=== PATIENT | female | born 1940 | race American Indian/Alaskan Native ===

== ENCOUNTER 2019-05-08 10:08 | Outpatient (CLI) | payer MEDICARE ==
--- NOTE | 2019-05-13 11:47 | Magnetic Resonance Report ---
BILATERAL BREAST MR WITHOUT AND WITH GADOLINIUM INDICATION: Left nipple discharge, left nipple retraction and increased risk for breast cancer based on family history. COMPARISONS: 03/05/2019 bilateral diagnostic mammogram and left breast ultrasound from [facility] TECHNIQUE: Axial 1.0 mm T1 without, axial high-resolution 2.0 mm T2 and axial 1.0 mm dynamic vibrant high-resolution postcontrast T1 fat saturation sequences on a 1.5 Samira magnet. The examination was p erformed with an 8-channel dedicated [place] breast coil. Post-processing with CAD and subtraction was performed on an [employer] workstation. 18.0 cc of MultiHance was injected without incident for the c ontrast portion of the exam. Consent was obtained prior to the administration of the contrast. FINDINGS: RIGHT BREAST: Marked background parenchymal enhancement. No mass or suspicious enhancement. No suspic ious right axillary or right internal mammary lymph nodes. LEFT BREAST: Moderate background parenchymal enhancement with overall decreased enhancement when comp ared to the right breast. Focal subareolar nonmass enhancement measures 14.1 x 8.0 x 4.2 mm. It demon strates heterogeneous enhancement with mixed kinetics, 103% peak enhancement, 47% type I persistent, 35% type II plateau an 18% type III washout waveforms. The left nipple is slightly retracted and T2 h yperintense signal is identified within the subareolar duct. No other mass or suspicious enhancement. A benign intraparenchymal lymph node at 6:00 7 cm from the nipple measures 8.2 x 6.3 x 4.0 mm. It ibarra s a large fatty hilum is hyperintense on T2 and correlates with ultrasound findings. No suspicious le ft axillary or left internal mammary lymph nodes. IMPRESSION: 1. Suspicious left subareolar focal nonmass enhancement. Recommend targeted ultrasound and ultrasound -guided needle biopsy if a lesion is identified by ultrasound. If no lesion is identified by ultrasou nd, consider left subareolar surgical excision. MRI biopsy may not be feasible due to the proximity o f the lesion to the nipple. 2. Negative right breast. 3. No suspicious lymph nodes. 4. A benign intraparenchymal lymph node of the left breast at 6:00 7 cm from the nipple. BI-RADS Category 4: Suspicious FINAL ASSESSMENT: Signer Name: Yuniel Urias MD Signed: 05/13/2019 11:42 AM Workstation Name: [id number]
== END 2019-05-08 10:09 | disposition home or self-care (01) ==
LOC: SPVIMAG 10:08
PROVIDERS: ATTEND Surgery
DX: R92.8 Other abnormal and inconclusive findings on diagnostic imaging of breast (principal); Z80.3 Family history of malignant neoplasm of breast
CPT/HCPCS: A9577; C8908; 77049

== ENCOUNTER 2019-06-11 10:22 | Outpatient (CLI) | payer MEDICARE ==
--- NOTE | 2019-06-11 11:55 | Ultrasound Report ---
LEFT BREAST ULTRASOUND HISTORY: Left nipple discharge and retraction. Recent abnormal MRI. COMPARISON: 05/13/2019 MRI. FINDINGS: Sonographic evaluation focused upon the area of clinical concern in the subareolar location demonstrates slight retraction of the nipple and several prominent dilated ducts. A prominent dilate d duct correlates with a duct on the MRI and the nonmass enhancement described on the MRI appears to be associated with this duct. No intraductal mass or suspicious shadowing.. IMPRESSION: Subareolar duct ectasia which is suspicious based on the MRI findings. These ducts are not amenable t o either ultrasound or MRI guided needle biopsy. Recommend surgical excision. BI-RADS Category 4: Suspicious Signer Name: Yuniel Urias MD Signed: 06/11/2019 11:51 AM Workstation Name: [id number]
== END 2019-06-11 10:23 | disposition home or self-care (01) ==
LOC: SPVWC 10:22
PROVIDERS: ATTEND Surgery
DX: N64.9 Disorder of breast, unspecified (principal)

== ENCOUNTER 2019-06-20 09:53 | Outpatient (CLI) | payer MEDICARE ==
--- NOTE | 2019-06-20 13:15 | Mammography Report ---
LEFT DIGITAL DIAGNOSTIC MAMMOGRAM CLINICAL: For clip placement after MRI guided needle biopsy. COMPARISON: 03/05/2019 FINDINGS: A retroareolar biopsy clip is identified and correlates with the site of MRI biopsy. IMPRESSION: Concordant clip deployment. BI-RADS Category 4: Suspicious Signer Name: Yuniel Urias MD Signed: 06/20/2019 1:10 PM Workstation Name: [id number]
--- NOTE | 2019-06-20 13:19 | Magnetic Resonance Report ---
LEFT MRI GUIDED BREAST BIOPSY INDICATION: Left nipple retraction and suspicious retroareolar nonmass enhancement. COMPARISONS: 03/05/2019 TECHNIQUE: Axial 1.0 mm T1 without and axial 1.0 mm dynamic vibrant high-resolution postcontrast T1 f at saturation sequences on a 1.5 Samira magnet. 18.0 cc of MultiHance was injected without incident fo r the contrast portion of the exam. Consent was obtained prior to the administration of the contrast. Lesion targeting was performed with [employer] software. FINDINGS: A timeout was called and the skin was marked. A localization scan was performed and a single lesion w as targeted. Using 1% lidocaine for superficial anesthesia and 2% lidocaine with epinephrine for deep anesthesia, a 9 gauge vacuum-assisted biopsy was performed. Satisfactory targeting and sampling was confirmed with imaging. Multiple cores were obtained and placed in formalin. The patient tolerated th e procedure well and there were no apparent complications. Hemostasis was achieved with minimal effor t. Steri-Strips and a sterile dressing were applied. A post procedure mammogram demonstrated concordant clip deployment. IMPRESSION: Successful uncomplicated MRI guided needle biopsy left breast. BI-RADS Category 4: Suspicious Signer Name: Yuniel Urias MD Signed: 06/20/2019 1:14 PM Workstation Name: [id number]
== END 2019-06-20 09:54 | disposition home or self-care (01) ==
LOC: SPVIMAG 09:53
PROVIDERS: ATTEND Surgery
DX: D24.2 Benign neoplasm of left breast (principal); R92.8 Other abnormal and inconclusive findings on diagnostic imaging of breast
CPT/HCPCS: 19085; 77065; 88305; A4648; A9577

== ENCOUNTER 2019-07-22 07:39 | Day surgery (SDC) | payer MEDICARE ==
[~2019-07-22 07:39] MED LIST: ceFAZolin/Water 2 GM/20 ML 2 GM/20 ML SYRINGE IV NR
[2019-07-22] MEDS ORDERED: BUPIVACAINE/PF (0.25%) 2.5 MG/ML 30 ML VIAL INFILTRATI ONE ×2 (07:53→12:14)
[2019-07-22] MEDS ORDERED: LIDOCAINE (1%) 10 MG/1 ML VIAL 20 ML MDV ONE ×2 (07:53→08:46)
[2019-07-22] MEDS ORDERED: LACTATED RINGERS 1,000 ML ONE ×2 (08:10→13:10)
[2019-07-22] MEDS ORDERED: LIDOCAINE (1%) 10 MG/1 ML VIAL 20 ML MDV INFILTRATI ONE ×2 (09:00→12:12)
[2019-07-22] MEDS ORDERED: LACTATED RINGERS 1,000 ML IV SCH (09:35)
[2019-07-22] MEDS ORDERED: ONDANSETRON 4 MG/2 ML INJ IV PRN (10:29)
--- NOTE | 2019-07-22 10:50 | Anesthesia Consultation ---
Anesthesia Consult and Med Hx - Airway Anesthetic Teeth Evaluation: Dentures, Edentulous ROM Head & Neck: Adequate Mental/Hyoid Distance: Adequate Mallampati Class: Class II Intubation Access Assessment: Probably Good - Pulmonary Exam CTA: Yes - Cardiac Exam Cardiac Exam: RRR - Pre-Operative Health Status ASA Pre-Surgery Classification: ASA3 Proposed Anesthetic Plan: General - Pulmonary Hx Smoking: Yes (quit 48yrs ago) Hx Asthma: Yes (used symbicort this morning) - Cardiovascular System Hx Hypertension: Yes Hx Heart Attack/AMI: No Hx Percutaneous Transluminal Coronary Angioplasty (PTCA): No - Central Nervous System CVA: No Hx Psychiatric Problems: Yes (depression) - Gastrointestinal Hx Gastroesophageal Reflux Disease: Yes (controlled) - Endocrine Hx Renal Disease: No Hx Liver Disease: No Hx Insulin Dependent Diabetes: No Hx Non-Insulin Dependent Diabetes: No Hx Thyroid Disease: Yes (hx thyroidectomy 2/2 nodules) - Other Systems Hx Obesity: Yes (BMI 31) - Additional Comments Anesthesia Medical History Comments: Hx DVT/PE in 04/2019; off xarelto 1 month.
--- NOTE | 2019-07-22 10:50 | Anesthesia Day of Surgery ---
Anesthesia Day of Surgery - Day of Surgery Patient Examined: Yes Patient H&P Reviewed: Yes Patient is NPO: Yes
--- NOTE | 2019-07-22 11:16 | Mammography Report ---
NEEDLE LOCALIZATION AND HOOKWIRE PLACEMENT LEFT BREAST INDICATION: LT BREAST MASS. Papilloma by MRI guided biopsy 06/20/2019 COMPARISON: 06/20/2019 mammogram. FINDINGS: Consent was obtained prior to the procedure. A timeout was called. Using mammographic guidance, steri le technique and local anesthesia, a 7.5 cm Sykes hookwire was placed from a CC from above approach to localize a retroareolar biopsy clip. Orthogonal views confirmed satisfactory placement. The hookw chema was deployed and the needle was removed. The patient tolerated the procedure well and there were no apparent complications. IMPRESSION: 1. Uncomplicated needle localization and hookwire placement left breast.. Signer Name: Yuniel Urias MD Signed: 07/22/2019 11:11 AM Workstation Name: [id number]
[2019-07-22] MEDS ORDERED: fentaNYL 100 MCG/2 ML INJ ONE (11:20)
[2019-07-22] MEDS ORDERED: propofoL 200 MG/20 ML VIAL IV ONE (11:21)
[2019-07-22] MEDS ORDERED: ONDANSETRON 4 MG/2 ML INJ ONE (11:22)
[2019-07-22] MEDS ORDERED: LIDOCAINE MPF (2%) 20 MG/1 ML VIAL 5 ML ONE (11:22)
--- NOTE | 2019-07-22 12:49 | Mammography Report ---
SPECIMEN RADIOGRAPH LEFT BREAST INDICATION: POST EXC BX. COMPARISON: 06/20/2019 FINDINGS: A biopsy clip and a hookwire are identified within the specimen. IMPRESSION: 1. Excision of the targeted lesion.. Signer Name: Yuniel Urias MD Signed: 07/22/2019 12:44 PM Workstation Name: [id number]
[2019-07-22] MEDS ORDERED: dexAMETHasone 20 MG/5 ML VIAL ONE (13:09)
--- NOTE | 2019-07-22 13:09 | Operative Report ---
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 Anesthesia: General Findings: Left breast radiograph specimen with clip and wire present Complications: None Drains: None Estimated blood loss: Minimal Disposition: PACU in good condition Indication for operative procedure: This is a 79-year-old lady with recent abnormal breast MRI findings. Recent left breast MRI guided breast biopsy with pathology findings of a papilloma. Recommendations are for excisional biopsy to rule out malignancy given benign high risk breast cancer lesion; patient with recent left nipple inversion as well. Patient wished to proceed with the above procedure. The patient was procedure in detail: Radiology placed wires to localize both area of concern at location of clip. The patient was taken to the operating room and was laid supine. General anesthesia was administered. The left breast was prepped and draped in the normal sterile operative fashion. Timeout was performed. The wire was identified. A 12:00 periareolar breast incision was made with a 15 blade knife with dissection taken down to the subcutaneous tissues. First began raising of the superior flap with removal of wire from the skin and dissection carried down posteriorly, followed by raising of the inferior, lateral, and medial flaps being raised and taken down posteriorly. The wire was not encountered. The area of concern was then removed with the aid of the Bovie cautery. The specimen was sent to radiology with radiograph specimen with clip and wire present and then sent to pathology. Hemostasis was obtained using the Bovie cautery. Breast cavity was anesthesized with 1% lidocaine and quarter percent marcaine. The breast cavity was irrigated and suctioned. The deep breast tissues were approximated and closed using interrupted 3-0 Vicryl and skin brought together and closed using a running 4-0 Monocryl followed by dermabond. She tolerated surgery very well and was awakened from anesthesia without any complication and transported to PACU in good condition.
--- NOTE | 2019-07-22 13:12 | Short Stay Summary ---
Short Stay Documentation Date of service: 07/22/19 - History H&P: obtained from office - Allergies and Medications Current Medications: Allergies No Known Allergies Allergy (Verified 07/17/19 12:06) Home Medications Medication Instructions Recorded Confirmed Last Taken Type Albuterol Sulfate [Albuterol 0.63% 0.63 mg IH TID PRN 07/17/19 07/17/19 Unknown History NEBS] Albuterol Sulfate [Proventil Hfa] 2 puff IH Q4H PRN 07/17/19 07/22/19 07/21/19 08:00 History Budesonide/Formoterol Fumarate 2 puff IH DAILY 07/17/19 07/22/19 07/22/19 05:00 History [Symbicort 160-4.5 Mcg Inhaler] Ergocalciferol [Vitamin D2] 1 cap PO QWEEK 07/17/19 07/17/19 Unknown History Rivaroxaban [Xarelto] 20 mg PO QDAY 07/17/19 07/22/19 06/10/19 08:00 History Triamterene/Hydrochlorothiazid 1 each PO DAILY 07/17/19 07/22/19 07/21/19 08:00 History [Triamterene-Hctz 75-50 mg Tab] Active Medications Hydromorphone HCl (Dilaudid) 0.5 mg IV Q10MIN PRN PRN Reason: Pain , Severe (7-10) Stop: 07/22/19 23:30 Cefazolin Sodium (Ancef/Sterile Water 2 Gm/20 Ml) 2 gm in 20 mls @ 80 mls/hr IV PREOP NR; Protocol Stop: 07/22/19 23:59 Lactated Ringer's (Lactated Ringers) 1,000 mls @ 75 mls/hr IV DIRECT SURY Last Admin: 07/22/19 09:35 Dose: 75 mls/hr Documented by: Ondansetron HCl (Zofran) 4 mg IV ONCE PRN PRN Reason: Nausea And Vomiting - Brief post op/procedure progress note Date of procedure: 07/22/19 Pre-op diagnosis: Left breast papilloma Post-op diagnosis: same Procedure: Left breast needle localization mass/papilloma excisional biopsy Anesthesia: GETA Findings: wire and clip present Surgeon: CASEY DASILVA Estimated blood loss: other (less than 50 cc) Pathology: list Specimen disposition: to lab Condition: stable - Disposition Condition at discharge: Good Disposition: DC-01 TO HOME OR SELFCARE Short Stay Discharge Plan Activity: other (no heavy lifting) Diet: regular Wound: keep clean and dry (may shower in 24 hours; wear breast binder; no baths) Follow up with: BRANDON WILL MD [Primary Care Provider] - 7 Days CASEY DASILVA MD [Staff Physician] - 7 Days
[2019-07-22] MEDS ORDERED: ALBUTEROL 2.5 MG/3 ML NEBU IH ONE ×2 (13:38→13:40)
[2019-07-22] MEDS: HYDROmorphone 1 MG/1 ML INJ IV PRN ×2 (13:44→14:00)
[2019-07-22] MEDS ORDERED: HYDROcodone/ACETAMINOPHEN 5-325 MG TAB PO PRN (14:21)
[2019-07-22 16:17] VITALS: BP 151/79
--- NOTE | 2019-07-22 21:05 | Post Anesthesia Evaluation ---
- Post Anesthesia Evaluation Patient Participated: Yes Airway Patent: Yes Stable Respiratory Function: Yes Nausea/Vomiting: No Temp > 96.8F: Yes Pain Manageable: Yes Adequeate Hydration: Yes Anesthesia Complications: No Block Receding Appropriately: Not Applicable Patient on Ventilator: No
== END 2019-07-22 07:40 | disposition home or self-care (01) ==
LOC: OR 07:39
PROVIDERS: ATTEND Surgery
DX: D24.2 Benign neoplasm of left breast (principal); N60.82 Other benign mammary dysplasias of left breast; J45.909 Unspecified asthma, uncomplicated; I10 Essential (primary) hypertension; F32.9 Major depressive disorder, single episode, unspecified; K21.9 Gastro-esophageal reflux disease without esophagitis; E66.9 Obesity, unspecified; M19.90 Unspecified osteoarthritis, unspecified site; Z87.891 Personal history of nicotine dependence; Z68.31 Body mass index [BMI] 31.0-31.9, adult; Z79.899 Other long term (current) drug therapy; Z98.890 Other specified postprocedural states; Z80.0 Family history of malignant neoplasm of digestive organs; Z80.3 Family history of malignant neoplasm of breast
CPT/HCPCS: 19125; 19281; 36415; 76098; 84132; 88304; 88307; J0690; J1100; J1170; J2405; J2704; J3010; J7120

== ENCOUNTER 2020-03-03 10:27 | Outpatient (CLI) | payer MEDICARE ==
--- NOTE | 2020-03-03 11:40 | Mammography Report ---
DIGITAL SCREENING MAMMOGRAM WITH CAD, 03/03/2020 INDICATION: Routine screening mammography. SCREENING TECHNIQUE: Digital bilateral 2D mammography was obtained in the craniocaudal and mediolateral obliq ue projections. This examination was interpreted with the benefit of Computer-Aided Detection analysi s. COMPARISON: 03/05/19. FINDINGS: Breast Density: There are scattered areas of fibroglandular density. There is no evidence of dominant mass, suspicious calcifications or architectural distortion in the r ight breast. Scarring in the left subareolar region has not changed. No new abnormality is seen. IMPRESSION: No mammographic evidence of malignancy or significant change. Follow up recommendation: Routine yearly BI-RADS Category 2: Benign. A "normal" or negative report should not discourage follow up or biopsy of a clinically significant f inding. A written summary of these findings will be mailed to the patient. The patient will be entered into a mammography reporting system which will generate a reminder letter for the patient's next appointmen t at the appropriate interval. The [employer] recommends yearly mammograms starting at age 40 and continuing as l esther as a woman is in good health. Breast MRI is recommended for women with an approximate 20-25% or greater lifetime risk of breast cancer, including women with a strong family history of breast or ova advid cancer or who have been treated for Hodgkin's disease. Signer Name: Marco Antonio Rosenbaum MD Signed: 03/03/2020 11:36 AM Workstation Name: [id number]
== END 2020-03-03 10:28 | disposition home or self-care (01) ==
LOC: SPVWC 10:27
PROVIDERS: ATTEND Surgery
DX: Z12.31 Encounter for screening mammogram for malignant neoplasm of breast (principal)
CPT/HCPCS: 77067